=== PATIENT | female | born 1955 | race Asian ===

== ENCOUNTER 2016-11-12 03:47 | Emergency (ER) | payer OTHER ==
[~2016-11-12] VITALS: Ht 170.2 cm; Wt 90.7 kg
[~2016-11-12 03:47] MED LIST: ASPIR 8181 MG PO
[2016-11-12 04:49] VITALS: BP 115/55
== END 2016-11-12 04:49 | disposition home or self-care (01) ==
LOC: ED 03:47
DX: F41.9 Anxiety disorder, unspecified (principal)
CPT/HCPCS: J2060